=== PATIENT | male | born 1970 | race Caucasian/White ===

== ENCOUNTER 2016-12-18 23:02 | Emergency (ER) | payer OTHER ==
[2016-12-19 01:06] LABS: microscopic required? NO
[2016-12-19 01:28] LABS: UA SPECIFIC GRAVITY 1.025 (1.005-1.035); urine erythrocyte NEGATIVE (NEGATIVE)
[2016-12-19 01:33] LABS: BASOPHIL % 0.4 % (0-2); PLATELET COUNT 217 x10^3mcL (130-400); RED CELL DISTRIBUTION WIDTH 13.6 % (11.5-14.5)
[2016-12-19 01:40] LABS: CALCIUM 8.1 mg/dL (8.5-10.1); CARBON DIOXIDE 31.4 mmol/L (21-32); CHLORIDE SERUM 104 mmol/L (98-107); CREATININE SERUM 0.8 mg/dL (0.7-1.3); GFR1 > 60 mL/min; GLUCOSE SERUM 96 mg/dL (74-106); POTASSIUM SERUM 3.9 mmol/L (3.5-5.1); SODIUM SERUM 140 mmol/L (136-145)
[2016-12-19 01:55] LABS: ALKALINE PHOSPHATASE 85 U/L (46-116); ALT/SGPT 31 U/L (16-63); AST/SGOT 24 U/L (15-37); BILIRUBIN TOTAL 0.75 mg/dL (0.20-1.00); TOTAL PROTEIN, SERUM 7.2 g/dL (6.4-8.2)
[2016-12-19 01:56] LABS: C REACTIVE PROTEIN < 0.2 mg/dL (<=0.9)
[2016-12-19 02:14] LABS: CK-MB 1.3 ng/mL (0-3.6)
[2016-12-19 02:26] LABS: ERYTHROCYTE SED RATE 15 mm/hr (0-15)
[2016-12-19 02:30] LABS: FREE T4 0.9 ng/dL (0.76-1.46); FREE THYROXINE INDEX 1.7 ug/dL (1.4-4.5); T4(THYROXINE) 5.6 ug/dL (4.7-13.3)
[2016-12-19 02:44] LABS: T3 TOTAL 0.99 ng/mL
[2016-12-19 02:52] VITALS: BP 114/70
== END 2016-12-19 02:52 | disposition home or self-care (01) ==
LOC: ED 23:02
PROVIDERS: Specialist
DX: K59.00 Constipation, unspecified (principal)
CPT/HCPCS: 83880; 84439; J1885; J7030; Q0092

== ENCOUNTER 2019-04-11 03:45 | Emergency (ER) | payer OTHER ==
[~2019-04-11] VITALS: Ht 177.8 cm; Wt 94.5 kg
[2019-04-11 03:49] VITALS: Ht 177.8 cm; Wt 94.5 kg
[2019-04-11 05:29] LABS: BASOPHIL % 0.1 % (0-2); PLATELET COUNT 177 x10^3mcL (130-400); RED CELL DISTRIBUTION WIDTH 13.4 % (11.5-14.5)
[2019-04-11 05:34] LABS: CALCIUM 8.2 mg/dL (8.5-10.1); CARBON DIOXIDE 24.2 mmol/L (21-32); CHLORIDE SERUM 102 mmol/L (98-107); CREATININE SERUM 0.9 mg/dL (0.7-1.3); GFR1 > 60 mL/min; GLUCOSE SERUM 131 mg/dL (74-106); POTASSIUM SERUM 3.5 mmol/L (3.5-5.1); SODIUM SERUM 138 mmol/L (136-145)
[2019-04-11 05:58] LABS: ALBUMIN 3.7 g/dL (3.4-5.0); ALKALINE PHOSPHATASE 87 U/L (46-116); ALT/SGPT 27 U/L (16-63); AST/SGOT 14 U/L (15-37); BILIRUBIN TOTAL 1.48 mg/dL (0.20-1.00); TOTAL PROTEIN, SERUM 6.7 g/dL (6.4-8.2)
[2019-04-11 09:01] LABS: UA SPECIFIC GRAVITY <=1.005 (1.005-1.035); microscopic required? YES; urine erythrocyte 3+ (NEGATIVE)
[2019-04-11 10:52] VITALS: BP 124/80
[2019-04-12] MEDS ORDERED: NORCO 10-325 T1 EACH (13:55)
[2019-04-12] MEDS ORDERED: GABAPENTIN100 M2 PO (13:55)
[2019-04-12] MEDS ORDERED: ROBAXIN500 MG (13:55)
== END 2019-04-11 10:53 | disposition home or self-care (01) ==
LOC: ED 03:45
PROVIDERS: Emergency Medicine
DX: N12 Tubulo-interstitial nephritis, not specified as acute or chronic (principal); E05.00 Thyrotoxicosis with diffuse goiter without thyrotoxic crisis or storm; Z88.0 Allergy status to penicillin; Z90.79 Acquired absence of other genital organ(s); Z90.89 Acquired absence of other organs
CPT/HCPCS: J1885; J1956; Q0092

== ENCOUNTER 2019-04-12 08:43 | Observation (INO) | payer OTHER ==
[~2019-04-12] VITALS: Ht 182.9 cm; Wt 93.5 kg
[2019-04-12 08:58] VITALS: Ht 182.9 cm; Wt 93.5 kg
--- NOTE | 2019-04-12 09:24 | NUR ---
PT HERE STATING HIS SYMPTOMS HAVE NOT BEEN IMPROVING. PT WAS HERE RECENTLY AND DX WITH PYELONEPHRITIS. AT BEDSIDE STS PT STILL HAS ONGOING FEVER WITH L FLANK PAIN SINCE YESTERDAY.
[2019-04-12 09:28] LABS: BASOPHIL % 0.1 % (0-2); PLATELET COUNT 143 x10^3mcL (130-400); RED CELL DISTRIBUTION WIDTH 13.5 % (11.5-14.5)
[2019-04-12 09:45] LABS: CALCIUM 8.4 mg/dL (8.5-10.1); CARBON DIOXIDE 28.1 mmol/L (21-32); CHLORIDE SERUM 97 mmol/L (98-107); CREATININE SERUM 1.1 mg/dL (0.7-1.3); GFR1 > 60 mL/min; GLUCOSE SERUM 135 mg/dL (74-106); POTASSIUM SERUM 3.5 mmol/L (3.5-5.1); SODIUM SERUM 133 mmol/L (136-145)
[2019-04-12 09:50] LABS: ALKALINE PHOSPHATASE 72 U/L (46-116); ALT/SGPT 30 U/L (16-63); AST/SGOT 22 U/L (15-37); BILIRUBIN TOTAL 1.3 mg/dL (0.20-1.00)
[2019-04-12 09:53] LABS: ALBUMIN 3.2 g/dL (3.4-5.0)
--- NOTE | 2019-04-12 11:00 | NUR ---
PT REPORTS FEELING BETTER AT THIS TIME
--- NOTE | 2019-04-12 12:30 | NUR ---
PT SLEEPING, EASY TO AROUSE AWAKE; NAD NOTED
--- NOTE | 2019-04-12 13:27 | NUR ---
PT INFORMED HE WILL BE ADMITTED PER DR CALLAWAY. PT REPORTS FEELING BETTER AND WANTS TO STAY IN HOSPITAL
[2019-04-12] MEDS ORDERED: ROBAXIN500 MG (13:55)
[2019-04-12] MEDS ORDERED: GABAPENTIN100 M2 PO (13:55)
[2019-04-12] MEDS ORDERED: NORCO 10-325 T1 EACH (13:55)
--- NOTE | 2019-04-12 13:59 | NUR ---
REPORT GIVEN TO DAMIR SELLERS
[2019-04-12 14:42] VITALS: BP 121/66
--- NOTE | 2019-04-12 14:45 | NUR ---
RECEIVED PT FROM ED VIA DARY. ORIENTED PT TO ROOM AND SURROUNDINGS. IV NOTED TO LFA PATENT AND INTACT. INSTRUCTED PT ON THE USE OF CALL LIGHT FOR ASSISTANCE. ENDORSED PT TO PRIMARY NURSE RD
--- NOTE | 2019-04-12 15:00 | NUR ---
ARRIVED TO FLOOR VIA GUERNEY FROM ER FOR LEFT FLANK PAIN. ALERT ORIENTED X4. STATED PAIN IS DOWN TO 5/10. DENIES ANY NAUSEA. SEEN AND EVALUATED BY MD BLANCHARD. CALL SAHNI WITHIN REACH.
--- NOTE | 2019-04-12 16:13 | NUR ---
NS AT 80 CC/HR INFUSING. MS 4MG IVP GIVEN FOR LEFT FLANK PAIN OF 7/10.
[2019-04-12 16:53] VITALS: BP 111/66
--- NOTE | 2019-04-12 18:04 | NUR ---
ASLEEP ON ROUNDS. "TIRED... I DID NOT SLEEP LAST NIGHT" PATIENT STATED. HAVING DINNER AT THIS TIME. NO CONPLAINTS.
--- NOTE | 2019-04-12 19:30 | NUR ---
PT IS HAVING TEMP-101, COOLING MEASURE APPLIED, TYLENOL PO ADMINISTERED, WILL CONTINUE TO MONITOR.
--- NOTE | 2019-04-12 19:35 | NUR ---
PT SEEN, RESTING IN BED, ASLEEP BUT EASILY AROUSABLE, ALERT AND ORIENTED, DENIES HEADACHE OR DIZZINESS, BREATHING EVEN AND UNLABORED ON ROOM AIR WITH NO RESP DISTRESS NOTED, MEDSURG PT, DENIES CHEST PAIN, IVF INFUSING WELL, COOLING MEASURE IN PLACE, AMBULATORY WITH STEADY GAIT, ABD SOFT AND FLAT WITH ACTIVE BS, NO BM AT THIS TIME, C/O OF ON AND OFF LEFT FLANK PAIN, NO N&V NOTED AT THIS TIME, NO DISTRESS NOTED, WILL KEEP TO MONITOR.
[2019-04-12 20:16] VITALS: BP 149/84
--- NOTE | 2019-04-13 04:34 | NUR ---
PT C/O OF SEVERE LEFT FLANK PAIN, MORPHINE 4MG VIA IVP ADMINISTERED, PT IS ALSO HAVING TEMP-100.6, TYLENOL 650 MG VIA ORAL ADMINISTERED, COOLING MEASURE APPLIED, WILL RECHECK PT'S TEMP.
--- NOTE | 2019-04-13 05:43 | NUR ---
PT ASLEEP BUT EASILY AROUSABLE, SLEPT ON AND OFF WHOLE NIGHT, RECHECK PT'S TEMP:97.7 VIA ORAL, MEDICATED PT WITH MORPHINE VIA IVP X 1 WITH GOOD RELIEF, IVF INFUSING WELL, PT WITH ANDREW COLOR URINE OUTPUT, NO DISTRESS NOTED, WILL KEEP TO MONITOR.
[2019-04-13 05:49] VITALS: BP 146/83
[2019-04-13 06:47] LABS: PLATELET COUNT 132 x10^3mcL (130-400); RED CELL DISTRIBUTION WIDTH 13.5 % (11.5-14.5)
[2019-04-13 06:53] LABS: BASOPHIL % 0 % (0-2)
--- NOTE | 2019-04-13 07:13 | NUR ---
BEDSIDE HANDOFF REPORT DONE WITH AVE-RN, ALL QIESTIONS ANSWERED AND CONCERNS ADDRESSED.
[2019-04-13 07:22] LABS: CARBON DIOXIDE 24.3 mmol/L (21-32); CHLORIDE SERUM 102 mmol/L (98-107); CREATININE SERUM 0.8 mg/dL (0.7-1.3); GFR1 > 60 mL/min; GLUCOSE SERUM 103 mg/dL (74-106); MAGNESIUM 1.9 mg/dL (1.8-2.4); POTASSIUM SERUM 3.6 mmol/L (3.5-5.1); SODIUM SERUM 136 mmol/L (136-145)
--- NOTE | 2019-04-13 08:10 | NUR ---
A+OX4, NO RESPRIATORY DISTRESS NOTED, MEDSURG, PULSES MODERATE AND EQUAL VICTOR M, NO EDEMA NOTED, LUNG SOUNDS CTA, TOLERATING RA, BOWEL SOUNDS ACTIVE, VOIDING FREELY, GENERALIZED WEAKNESS, AMBULATORY, SKIN INTACT, IV IN LFA WITH NS @ 80 ML/HR, SITE WNL.
[2019-04-13 09:17] VITALS: BP 118/69
--- NOTE | 2019-04-13 12:13 | NUR ---
PT RESTING IN BED, NO RESPIRATORY DISTRESS NOTED, STATES FLANK PAIN IS TOLERABLE AT THIS TIME, CALL LIGHT WITHIN REACH.
--- NOTE | 2019-04-13 14:16 | NUR ---
PT RESTING IN BED, NO RESPIRATORY DISTRESS NOTED, STATES ABD PAIN IS TOLERABLE AT THIS TIME, CALL LIGHT WITHIN REACH. DR SOTELO AT BEDSIDE TO ASSESS AND SPEAK TO PT.
--- NOTE | 2019-04-13 16:13 | NUR ---
PT RESTING IN BED, NO RESPIRATORY DISTRESS NOTED, APPEARS TO BE SLEEPING, CALL LIGHT WITHIN REACH.
[2019-04-13 16:25] VITALS: BP 124/70
--- NOTE | 2019-04-13 18:32 | NUR ---
PT RESTING IN BED, NO RESPIRATORY DISTRESS NOTED, COMPLAINING OF NAUSEA, ZOFRAN IVP GIVEN, CALL LIGHT WITHIN REACH.
--- NOTE | 2019-04-13 19:24 | NUR ---
ENDORSED CARE TO SERGEY SELLERS.
--- NOTE | 2019-04-13 19:55 | NUR ---
PT SEEN, RESTING IN BED, ASLEEP BUT EASILY AROUSABLE, ALERT AND ORIENTED, DENIES HEADACHE OR DIZZINESS, BREATHING EVEN AND UNLABORED ON ROOM AIR WITH NO RESP DISTRESS NOTED, MEDSURG PT, DENIES CHEST PAIN, IVF INFUSING WELL, MILD GENERALIZED WEAKNESS BUT AMBULATORY WITH STEADY GAIT, ABD SOFT AND FLAT WITH ACTIVE BS, NO BM AT THIS TIME, C/O OF ON AND OFF LEFT FLANK PAIN AND N&V AT TIMES, NO DISTRESS NOTED, WILL KEEP TO MONITOR.
[2019-04-13 20:44] VITALS: BP 124/77
--- NOTE | 2019-04-13 23:43 | NUR ---
DR GIORDANO CALLED AND UPDATES GIVEN, PER DR GIORDANO THAT DR SOTELO CALLED HIM FOR CONSULT, NO NEW ORDER RECEIVED.
--- NOTE | 2019-04-14 00:27 | NUR ---
RESTORIL 30MG VIA ORAL ADMINISTERED DUE TO PT UNABLE TO SLEEP, PT DENIES ANY PAIN OR DISCOMFORT AT THIS TIME, IVF INFUSING WELL, NO DISTRESS NOTED, WILL KEEP TO MONITOR.
[2019-04-14 05:59] VITALS: BP 133/77
--- NOTE | 2019-04-14 06:15 | NUR ---
PT ASLEEP BUT EASILY AROUSABLE, SLEPT WITH LONG INTERVALS AFTER RESTORIL PO, IVF INFUSING WELL, NO C/O OF ANY PAIN OR DISCOMFORT SINCE BEGINNING OF SHIFT, NO FEVER THROUGHOUT THE SHIFT, NO DISTRESS NOTED, WILL KEEP TO MONITOR.
[2019-04-14 06:43] LABS: PLATELET COUNT 155 x10^3mcL (130-400); RED CELL DISTRIBUTION WIDTH 13.7 % (11.5-14.5)
[2019-04-14 07:05] LABS: ALKALINE PHOSPHATASE 67 U/L (46-116); ALT/SGPT 39 U/L (16-63); AST/SGOT 26 U/L (15-37); BILIRUBIN DIRECT 0.34 mg/dL (0.0-0.2); BILIRUBIN TOTAL 0.9 mg/dL (0.20-1.00); CALCIUM 8.3 mg/dL (8.5-10.1); CARBON DIOXIDE 30.4 mmol/L (21-32); CHLORIDE SERUM 106 mmol/L (98-107); CREATININE SERUM 0.8 mg/dL (0.7-1.3); GFR1 > 60 mL/min; GLUCOSE SERUM 94 mg/dL (74-106); POTASSIUM SERUM 3.5 mmol/L (3.5-5.1); SODIUM SERUM 141 mmol/L (136-145); TOTAL PROTEIN, SERUM 6.3 g/dL (6.4-8.2)
[2019-04-14 07:06] LABS: ALBUMIN 2.7 g/dL (3.4-5.0)
--- NOTE | 2019-04-14 07:22 | NUR ---
BEDSIDE HANDOFF REPORT GIVEN TO WESLEY-VERITO, ALL QUESTIONS ANSWERED AND CONCERNS ADDRESSED.
--- NOTE | 2019-04-14 07:50 | NUR ---
PATIENT RESTING IN BED, NO ACUTE DISTRESS NOTED. PATIENT C/O OF MILD PAIN TO FLANKS, PATIENT STATES ITS TOLERABLE. PATIENT C/O OF MILD HEADACHE 11/24. NO RESP DISTRESS NOTED, PATIENT ON ROOM AIR. DENIES NAUSEA/VOMITING AT THIS TIME. NS IV INFUSING TO LFA AT 80ML/HR, IV SITE CDI & PATENT, NO S/S OF INFILTRATION. CALL LIGHT WITHIN REACH, BED IN LOW POSITION. WILL CONTINUE TO MONITOR FOR CHANGES.
--- NOTE | 2019-04-14 09:19 | NUR ---
PATIENT WAS C/O HEADACHE 11/24, MEDICATED PATIENT WITH TYLENOL PER PROTOCOL (SEE EMAR). WILL CONTINUE TO MONITOR PATIENT, CALL LIGHT WITHIN REACH, BED IN LOW POSITION.
[2019-04-14 09:37] VITALS: BP 112/78
[2019-04-14 11:52] LABS: BAND NEUTROPHIL 11 % (0-10); BASOPHIL 1 % (0-2); MONOCYTE 10 % (0-7); SEGMENTED NEUTROPHILS 70 % (37-75)
[2019-04-14 11:54] LABS: PLATELET MORPHOLOGY PLATELETS DECREASED; rbc morphology (normal/abnorm) ABNORMAL (NORMAL)
[2019-04-14] MEDS ORDERED: CIPRO500 MG PO (14:17)
[2019-04-14] MEDS ORDERED: APAP500 MG PO (15:19)
[2019-04-14 16:04] VITALS: BP 112/78
--- NOTE | 2019-04-14 16:50 | NUR ---
PATIENT HAD QUESTIONS AND CONCERNS REGARDING DISCHARGE, PATIENT WANTED TO SPEAK WITH DR SOTELO. DR SOTELO AWARE AND SPOKE WITH PATIENT REGARDING DISCHARGE. PATIENT ASKED FOR A WORK NOTE, PATIENT AWARE HE WILL NEED TO PICK IT UP AT DR CUMMINGS OFFICE TOMORROW, DR CUMMINGS OFFICE ADDRESSED GIVEN TO PT. ALL QUESTIONS AND CONCERNS ADDRESSED.
[2019-04-14 18:20] VITALS: BP 128/85
--- NOTE | 2019-04-14 19:10 | NUR ---
PATIENT WAS DISCHARGED HOME, AT BEDSIDE. NO ACUTE CHANGES NOTED, THROUGH OUT SHIFT, PATIENT IS STABLE. PATIENT DENIES PAIN. PATIENT RECEIVED COPY OF D/C INSTRUCTIONS, PATIENT UNDERSTANDS AND AGREES WITH POC AND D/C INSTRUCTIONS, INCLUDING FOLLOW UP WITH PCP & MEDICATIONS. ALL QUESTIONS & CONCERNS ADDRESSED, PATIENT TOOK HOME ALL PERSONAL BELONGINGS.IV TO LFA REMOVED BY RN STUDENT. ARMBANDS REMOVED.
== END 2019-04-14 19:09 | disposition home or self-care (01) | DRG 690 ==
LOC: ED 08:43 → MU 13:14
PROVIDERS: Internal Medicine; ADMIT Internal Medicine Pulmonary Disease
DX: N10 Acute pyelonephritis (principal); E86.9 Volume depletion, unspecified; E05.00 Thyrotoxicosis with diffuse goiter without thyrotoxic crisis or storm; Z90.79 Acquired absence of other genital organ(s); Z68.28 Body mass index [BMI] 28.0-28.9, adult
CPT/HCPCS: G0378; J0744; J1956; J2270; J2405; J7030